=== PATIENT | male | born 1950 | race Caucasian/White ===

== ENCOUNTER 2016-10-29 12:57 | Inpatient (IN) ==
[2016-10-29] MEDS ORDERED: ASPIRIN ONE (13:19)
[2016-10-29] MEDS ORDERED: ASPIRIN PO STA (13:21)
[2016-10-29 13:34] LABS: MANUAL DIFF NEEDED? NO
--- NOTE | 2016-10-29 13:46 | EKG Report ---
Test Performed on : 10/29/2016 1:15:33 PM Test Reason : Chest Pain Blood Pressure : / mmHG Vent. Rate : 049 BPM Atrial Rate : 049 BPM P-R Int : 216 ms QRS Dur : 128 ms QT Int : 414 ms P-R-T Axes : 032 -28 084 degrees QTc Int : 373 ms Sinus bradycardia. with 1st degree AV block. Nonspecific intraventricular block Abnormal ECG When compared with ECG of 29-OCT-2016 13:14, (Unconfirmed) Sinus rhythm. has replaced Wide QRS rhythm. Unconfirmed Result
[2016-10-29 13:48] LABS: BASO% 0.1 % (0.0-0.8); EOS# 0.27 X1000 (0.0-0.7); EOS% 2.7 % (0.0-10.0); HEMATOCRIT 37.5 % (42.0-52.0); HEMOGLOBIN 12.7 g/dL (14.0-18.0); LYMPH# 2.03 X1000 (1.2-3.4); LYMPH% 20.6 % (20.5-51.1); MCHC 33.9 g/dL (33-37); MCV 91.5 FL (81-99); MONO# 0.54 X1000 (0.11-0.59); MONO% 5.5 % (1.7-9.3); MPV 9.8 FL (7.4-10.4); NEUT% 71.1 % (42.2-75.2); PLT 155 X1000 (130-400)
[2016-10-29 13:55] LABS: INR 1.01; PROTIME 10.6 Seconds (9.2-11.7); PTT 30.5 Seconds (22.0-36.0)
--- NOTE | 2016-10-29 13:58 | Diag Imaging Result Doc PS360 ---
CHEST-2 VIEWS - 10/29/2016 INDICATION: CP TECHNIQUE: COMPARISON: None FINDINGS: There are sternotomy wires. The lungs are normally expanded and clear. Heart size and mediastinal contours are normal. No pneumothorax or pleural effusion. IMPRESSION: Negative exam. Electronically signed by Jose Faith 10/29/2016 1:56 PM
[2016-10-29 14:12] LABS: ALBUMIN 4.4 g/dL (3.5-5.0); CALCIUM 9.1 mg/dL (8.8-10.2); MAGNESIUM 1.7 mg/dL (1.5-2.7); TOTAL BILIRUBIN 0.26 mg/dL (0.20-1.00); TOTAL PROTEIN 6.9 g/dL (6.3-8.3)
[2016-10-29 14:36] LABS: POTASSIUM 7.8 mmol/L (3.5-5.1)
[2016-10-29 14:55] LABS: CK INDEX 3.5 (0.0-2.5); CK-MB 10.08 ng/mL (0.0-5.0)
[2016-10-29] MEDS ORDERED: D50W 500 ML IV SCH (15:45)
[2016-10-29] MEDS ORDERED: HUMULIN R IV ONE ×2 (15:48→18:39)
[2016-10-29] MEDS ORDERED: KAYEXALATE PO ONE (15:49)
[2016-10-29] MEDS ORDERED: CALCIUM GLUCONATE 1 GM in NS 50 ML IV ONE (15:57)
[2016-10-29] MEDS ORDERED: D50W SYRINGE IV ONE ×2 (16:03→18:39)
--- NOTE | 2016-10-29 16:04 | PROVIDER DOCUMENTATION ---
This chart was entered by Kingsley Lo Scribe, acting as scribe for Darrell Arriola MD. HPI-General Adult - General Chief Complaint: Chest Pain Stated Complaint: CHEST PAIN Time Seen by Provider: 10/29/16 15:05 Source: patient Allergies/Adverse Reactions: Patient Allergies Allergy/AdvReac Type Severity Reaction Status Date / Time Penicillins Allergy Unknown Verified 10/29/16 15:22 Quinolones Allergy Unknown Verified 10/29/16 15:22 Home Medications: Home Medication List Medication Instructions Recorded Confirmed Last Taken Type BENAZEpril [Lotensin] 20 mg PO DAILY 10/29/16 10/29/16 10/29/16 07:00 History Carvedilol [Coreg] 12.5 mg PO BID 10/29/16 10/29/16 10/29/16 07:00 History Gabapentin 200 mg PO BID 10/29/16 10/29/16 10/29/16 07:00 History Naproxen 500 mg PO BID 10/29/16 10/29/16 10/29/16 07:00 History Omeprazole 40 mg PO DAILY 10/29/16 10/29/16 10/29/16 06:00 History SIMVAstatin [Zocor] 40 mg PO QHS 10/29/16 10/29/16 10/28/16 17:00 History Tamsulosin [Flomax] 0.4 mg PO DAILY 10/29/16 10/29/16 10/29/16 07:00 History - History of Present Illness -Gen Adult Nature of Presenting Problems: patient is a 66 y/o M that presents to the ER with 2 days of leg weakness and increased shortness of breath. Denies chest pain, n/v/d recently, or fever. Patient has history of CAD and COPD. Location of Pain/Injury: reports: lower body Quality of Pain: reports: aching Severity: reports: moderate Onset/Duration: reports: abrupt, 2 days ago Timing: reports: improving Context/Activities at Onset: reports: none Modifying Factors: improves with: nothing Associated Symptoms: reports: muscle aches, shortness of breath, weakness, trouble walking. denies: back/neck pain, chest pain, dizziness, fever/chills, genitourinary problems, nausea, vomiting Similar Symptoms Previously?: No Recently seen or treated by another doctor?: No Review of Systems - Adult - REVIEW OF SYSTEMS - ADULT Constitutional: denies: chills, fever Eyes: denies: decreased vision, blurred vision, double vision Ears, Nose, Mouth & Throat: denies: ear discharge, ear pain, sinus problem, throat pain, throat swelling Cardiovascular: denies: chest pain, palpitations, syncope Respiratory: reports: shortness of breath. denies: cough, wheezing Gastrointestinal: denies: abdominal pain, diarrhea, nausea, vomiting Genitourinary: reports: no symptoms reported Musculoskeletal: reports: frequent leg cramps, muscle aches, muscle weakness Integumentary: reports: no symptoms reported Neurological: reports: headache/migraines. denies: dizziness/vertigo Psychiatric: reports: no symptoms reported Endocrine: reports: no symptoms reported Hematologic/Lymphatic: reports: no symptoms reported Allergic/Immunologic: reports: no symptoms reported All Other Systems: Reviewed and Negative Past History - Adult - PAST MEDICAL HISTORY-ADULT Review of Records: reports: Old Records Reviewed, Nursing Assessment Review, Medications Reviewed Cardiovascular: reports: CAD, HTN, hyperlipidemia Respiratory: reports: COPD, sleep apnea Endocrine/Immune: reports: Diabetes - PRIOR SURGERIES/PROCEDURES Surgical/Procedure History: reports: CABG - IMMUNIZATION STATUS Childhood Immunizations: See Nurse Assessment Flu Vaccine: See Nurse Assessment - FAMILY HISTORY Family History: reviewed, not pertinent - SOCIAL HISTORY Smoking: quit greater than 1 year, cigarettes Substance Use: none/never Living Situation: family Physical Exam-General - PHYSICAL EXAM-ADULT Initial Vital Signs Reviewed: Yes - CONSTITUTIONAL General Appearance: alert, no apparent distress - EYES Eyes: PERRL/EOMI, pink conjunctivae - HEAD, EARS, NOSE, MOUTH & THROAT HENMT: normocephalic/atraumatic, moist mucous membranes, normal ENT inspection - NECK Neck: full range of motion, normal inspection - RESPIRATORY Respiratory: lungs clear, normal breath sounds, no respiratory distress, no accessory muscle use - CARDIOVASCULAR Cardiovascular: no edema, no JVD, bradycardia - GASTROINTESTINAL (ABDOMEN) Abdominal Exam: normal bowel sounds, non tender, soft, no organomegaly, no pulsatile mass - MUSCULOSKELETAL Back Exam: no CVA tenderness, no vertebral tenderness Extremity: normal range of motion, normal inspection, no pedal edema, no calf tenderness, normal capillary refill - SKIN Integumentary: normal color, warm/dry - 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, no motor/sensory deficits - PSYCHIATRIC Psych/Mental Status: normal mood/affect, normal thought content, normal thought process, oriented x 3 Progress - PLAN OF CARE/RESULTS Progress/Plan/Lab Results: Vital Signs - 8 hr 10/29/16 13:15 10/29/16 15:12 Temperature 97.6 F Pulse Rate 50 L 52 L Respiratory Rate 20 21 Blood Pressure 172/82 144/76 O2 Sat by Pulse Oximetry 99 98 Laboratory Results - last 24 hr 10/29/16 10/29/16 10/29/16 13:24 13:24 13:24 WBC 9.84 RBC 4.10 L Hgb 12.7 L Hct 37.5 L MCV 91.5 MCH 31.0 MCHC 33.9 RDW Std Deviation 12.7 Plt Count 155 MPV 9.8 Immature Gran % (Auto) 0.0 Neut % (Auto) 71.1 Lymph % (Auto) 20.6 [place] % (Auto) 5.5 Eos % (Auto) 2.7 Baso % (Auto) 0.1 Immature Gran # (Auto) 0.00 Neut # (Auto) 6.99 H Lymph # (Auto) 2.03 [place] # (Auto) 0.54 Eos # (Auto) 0.27 Baso # (Auto) 0.01 PT INR PTT (Actin FS) D-Dimer 0.49 Sodium 127 L Potassium 7.8 H* Chloride 97 L Carbon Dioxide 17 L Anion Gap 13 BUN 37 H Creatinine 2.2 H Estimated GFR/1.73 m2 30 BUN/Creatinine Ratio 17 Glucose 102 Calculated Osmolality 264 Calcium 9.1 Magnesium 1.7 Total Bilirubin 0.26 AST 21 ALT 19 Alkaline Phosphatase 105 Creatine Kinase 291 H Creatine Kinase Index 3.5 H CK-MB (CK-2) 10.08 H Troponin T Hfb-P-Kdxmawjroul Pept Total Protein 6.9 Albumin 4.4 Globulin 2.5 Albumin/Globulin Ratio 1.8 10/29/16 10/29/16 10/29/16 13:24 13:24 13:24 WBC RBC Hgb Hct MCV MCH MCHC RDW Std Deviation Plt Count MPV Immature Gran % (Auto) Neut % (Auto) Lymph % (Auto) [place] % (Auto) Eos % (Auto) Baso % (Auto) Immature Gran # (Auto) Neut # (Auto) Lymph # (Auto) [place] # (Auto) Eos # (Auto) Baso # (Auto) PT 10.6 INR 1.01 PTT (Actin FS) 30.5 D-Dimer Sodium Potassium Chloride Carbon Dioxide Anion Gap BUN Creatinine Estimated GFR/1.73 m2 BUN/Creatinine Ratio Glucose Calculated Osmolality Calcium Magnesium Total Bilirubin AST ALT Alkaline Phosphatase Creatine Kinase Creatine Kinase Index CK-MB (CK-2) Troponin T < 0.010 Xic-H-Polwpaajnmr Pept 120 Total Protein Albumin Globulin Albumin/Globulin Ratio 10/29/16 14:42 WBC RBC Hgb Hct MCV MCH MCHC RDW Std Deviation Plt Count MPV Immature Gran % (Auto) Neut % (Auto) Lymph % (Auto) [place] % (Auto) Eos % (Auto) Baso % (Auto) Immature Gran # (Auto) Neut # (Auto) Lymph # (Auto) [place] # (Auto) Eos # (Auto) Baso # (Auto) PT INR PTT (Actin FS) D-Dimer Sodium Potassium 7.8 H* Chloride Carbon Dioxide Anion Gap BUN Creatinine Estimated GFR/1.73 m2 BUN/Creatinine Ratio Glucose Calculated Osmolality Calcium Magnesium Total Bilirubin AST ALT Alkaline Phosphatase Creatine Kinase Creatine Kinase Index CK-MB (CK-2) Troponin T Tvv-U-Ewtskmgdhmz Pept Total Protein Albumin Globulin Albumin/Globulin Ratio Orders Category Date Time Status CHEST-2 VIEWS [RAD] Stat Exams 10/29/16 13:21 Completed CBC WITH ELECTRONIC DIFF [HEME] Stat Lab 10/29/16 13:24 Completed CK PROFILE [SP CHEM] Stat Lab 10/29/16 13:24 Completed COMPREHENSIVE METABOLIC PANEL [CHEM] Stat Lab 10/29/16 13:24 Completed D-DIMER [CHEM] Stat Lab 10/29/16 13:24 Completed MAGNESIUM [CHEM] Stat Lab 10/29/16 13:24 Completed POTASSIUM [CHEM] Stat Lab 10/29/16 14:42 Completed PRO B-NATRIURETIC PEPTIDE Stat Lab 10/29/16 13:24 Completed PROTIME WITH INR [COAG] Stat Lab 10/29/16 13:24 Completed PTT [COAG] Stat Lab 10/29/16 13:24 Completed TROPONIN T Stat Lab 10/29/16 13:24 Completed Aspirin Med 10/29/16 13:19 Discontinued 325 mg .ROUTE .STK-MED ONE Aspirin Med 10/29/16 13:21 Discontinued 325 mg PO STAT STA EKG [EKG] Stat Ther 10/29/16 13:21 Draft Vital Signs Temp Pulse Resp BP Pulse Ox 10/29/16 15:12 52 L 21 144/76 98 10/29/16 13:15 97.6 F 50 L 20 172/82 99 Penicillins Allergy (Verified 10/29/16 15:22) Unknown Quinolones Allergy (Verified 10/29/16 15:22) Unknown BENAZEpril [Lotensin] 20 mg PO DAILY 10/29/16 Carvedilol [Coreg] 12.5 mg PO BID 10/29/16 Gabapentin 200 mg PO BID 10/29/16 Naproxen 500 mg PO BID 10/29/16 Omeprazole 40 mg PO DAILY 10/29/16 SIMVAstatin [Zocor] 40 mg PO QHS 10/29/16 Tamsulosin [Flomax] 0.4 mg PO DAILY 10/29/16 Laboratory 10/29/16 10/29/16 10/29/16 14:42 13:24 13:24 WBC RBC Hgb Hct MCV MCH MCHC RDW Std Deviation Plt Count MPV Immature Gran % (Auto) Neut % (Auto) Lymph % (Auto) [place] % (Auto) Eos % (Auto) Baso % (Auto) Immature Gran # (Auto) Neut # (Auto) Lymph # (Auto) [place] # (Auto) Eos # (Auto) Baso # (Auto) PT 10.6 INR 1.01 PTT (Actin FS) 30.5 D-Dimer Sodium Potassium 7.8 H* Chloride Carbon Dioxide Anion Gap BUN Creatinine Estimated GFR/1.73 m2 BUN/Creatinine Ratio Glucose Calculated Osmolality Calcium Magnesium Total Bilirubin AST ALT Alkaline Phosphatase Creatine Kinase Creatine Kinase Index CK-MB (CK-2) Troponin T < 0.010 Yiv-X-Pdpqgldbaki Pept Total Protein Albumin Globulin Albumin/Globulin Ratio 10/29/16 10/29/16 10/29/16 13:24 13:24 13:24 WBC RBC Hgb Hct MCV MCH MCHC RDW Std Deviation Plt Count MPV Immature Gran % (Auto) Neut % (Auto) Lymph % (Auto) [place] % (Auto) Eos % (Auto) Baso % (Auto) Immature Gran # (Auto) Neut # (Auto) Lymph # (Auto) [place] # (Auto) Eos # (Auto) Baso # (Auto) PT INR PTT (Actin FS) D-Dimer 0.49 Sodium 127 L Potassium 7.8 H* Chloride 97 L Carbon Dioxide 17 L Anion Gap 13 BUN 37 H Creatinine 2.2 H Estimated GFR/1.73 m2 30 BUN/Creatinine Ratio 17 Glucose 102 Calculated Osmolality 264 Calcium 9.1 Magnesium 1.7 Total Bilirubin 0.26 AST 21 ALT 19 Alkaline Phosphatase 105 Creatine Kinase 291 H Creatine Kinase Index 3.5 H CK-MB (CK-2) 10.08 H Troponin T Slm-P-Zbnelbzwapt Pept 120 Total Protein 6.9 Albumin 4.4 Globulin 2.5 Albumin/Globulin Ratio 1.8 10/29/16 13:24 WBC 9.84 RBC 4.10 L Hgb 12.7 L Hct 37.5 L MCV 91.5 MCH 31.0 MCHC 33.9 RDW Std Deviation 12.7 Plt Count 155 MPV 9.8 Immature Gran % (Auto) 0.0 Neut % (Auto) 71.1 Lymph % (Auto) 20.6 [place] % (Auto) 5.5 Eos % (Auto) 2.7 Baso % (Auto) 0.1 Immature Gran # (Auto) 0.00 Neut # (Auto) 6.99 H Lymph # (Auto) 2.03 [place] # (Auto) 0.54 Eos # (Auto) 0.27 Baso # (Auto) 0.01 PT INR PTT (Actin FS) D-Dimer Sodium Potassium Chloride Carbon Dioxide Anion Gap BUN Creatinine Estimated GFR/1.73 m2 BUN/Creatinine Ratio Glucose Calculated Osmolality Calcium Magnesium Total Bilirubin AST ALT Alkaline Phosphatase Creatine Kinase Creatine Kinase Index CK-MB (CK-2) Troponin T Eyf-Y-Mvwrqldpmuf Pept Total Protein Albumin Globulin Albumin/Globulin Ratio Orders Category Date Time Status CHEST-2 VIEWS [RAD] Stat Exams 10/29/16 13:21 Completed CBC WITH ELECTRONIC DIFF [HEME] Stat Lab 10/29/16 13:24 Completed CK PROFILE [SP CHEM] Stat Lab 10/29/16 13:24 Completed COMPREHENSIVE METABOLIC PANEL [CHEM] Stat Lab 10/29/16 13:24 Completed D-DIMER [CHEM] Stat Lab 10/29/16 13:24 Completed MAGNESIUM [CHEM] Stat Lab 10/29/16 13:24 Completed POTASSIUM [CHEM] Stat Lab 10/29/16 14:42 Completed PRO B-NATRIURETIC PEPTIDE Stat Lab 10/29/16 13:24 Completed PROTIME WITH INR [COAG] Stat Lab 10/29/16 13:24 Completed PTT [COAG] Stat Lab 10/29/16 13:24 Completed TROPONIN T Stat Lab 10/29/16 13:24 Completed Aspirin Med 10/29/16 13:19 Discontinued 325 mg .ROUTE .STK-MED ONE Aspirin Med 10/29/16 13:21 Discontinued 325 mg PO STAT STA Dextrose 50% Water Inj. [D50w] 500 ml Med 10/29/16 15:45 Ordered IV As Directed Insulin Human Regular [Humulin R] Med 10/29/16 15:48 Discontinued 10 unit IV NOW ONE Sodium Polystyrene [Kayexalate] Med 10/29/16 15:49 Discontinued 15 gm PO NOW ONE EKG [EKG] Stat Ther 10/29/16 13:21 Draft Result Diagrams: 10/29/16 13:24 10/29/16 14:42 - EKG 1 Time of EKG reading by physician:: 13:32 EKG Read and Signed by:: Darrell Arriola EKG Interpretation (*Must complete 3 of following elements*): Abnormal Rate: 49 Rhythm: Sinus bradycardia with 1st degree Av block [place]: normal QRS: NSIVCD [place] Interval: normal ST Wave: non-specific ST changes (mild peaking of T-waves) - CONSULTS/PCP/HOSPITALIST Notification #1 *Consult/PCP/Hospitalist*: Maribell BERRIOS with Hospitalist Time Discussed: 15:55 Reason/Comments: YOUNG, Hyperkalemia Consult Disposition: Admit (give amp of calcium) Departure - Departure Date of Disposition Decision: 10/29/16 Time of Disposition Decision: 15:55 DIAGNOSIS: YOUNG (acute kidney injury), Acute hyperkalemia Disposition: ADMITTED INPATIENT 09 Certified Medical Emergency: Emergent Condition: Stable Referrals and Follow-Ups: Justyn Carpio [Primary Care Provider] - - Critical Care Note This patient required my direct & personal management of CC.: Yes Total Time (mins): 45 Critical Care Statement: This patient required my direct personal management to treat or rule out processes, the absence of which, could potentiallly result in sudden, clinically significant life or limb threatening deterioration. Attestation - Physician/ IJEOMA Attestation The physician spent face to face time with patient:: Yes Advanced Practice Provider documentation review:: Supervising physician onsite and consulted in the evaluation and care of this patient. The physician did have a face to face encounter with the patient. This chart was documented by the indicated scribe, (Kingsley Lo, Scribe) and accurately reflects the services I performed and decisions made by me, Darrell Arriola MD, as attested by the provider's signature.
[2016-10-29] MEDS ORDERED: SODIUM BICARBONATE 8.4% IV PUSH ONE (16:32)
--- NOTE | 2016-10-29 17:09 | HISTORY AND PHYSICAL ---
His chief complaint when he came in was cramping in his muscles and weakness. This is a 66-year- old who stated he was working outside, came in the house. He was sitting in a lounge chair and about 9 o'clock this morning noticed cramping in his lower legs, his calves and then cramping in his hands and feeling funny with kind of a wave of tingling and discomfort coming from his neck all the way down his body. But the main concern was the cramping and the weakness. He denied any squeezing or pressure chest pain. No fever but he did break out in a sweat. He denied pleuritic pain. No wheezing. No sputum production. No gross hematuria or dysuria. PAST MEDICAL HISTORY: 1. He has history of coronary artery disease. Apparently in 2010 he had symptoms of feeling weak and tired and apparently some chest discomfort. Went to the emergency room and they checked enzymes and they were positive. Workup revealed I think 3 vessel disease and he went for CABG bypass surgery in 2010. That is when he quit smoking. 2. Long history of tobacco. Quit in 2010. 3. Borderline diabetes, that is what they told him, but does not have diabetes. 4. Hypercholesterolemia. 5. Hypertension. PAST SURGICAL HISTORY: Status post CABG bypass surgery. ALLERGIES: Penicillin and quinolones. FAMILY HISTORY: Mother with diabetes. Father I think with coronary artery disease. REVIEW OF SYSTEMS: General: He denies fever. He did break out in sweats this morning. HEENT: Did not have change in his hearing or vision. No complaints of throat or posterior pharynx discomfort or trouble with upper respiratory drainage. Cardiovascular: No chest pain. No palpitations. No orthopnea or paroxysmal nocturnal dyspnea. GI/: No complaints of constipation or change in his bowels. No gross hematochezia. GI/: No gross hematuria, dysuria. No increase or change in his frequency of urination. He does have a benign prostatic hypertrophy with minimal symptoms of obstruction. Endocrinologic/hematologic: No new complaints. Does not give any history of thyroid issues or anemia. Skin: No complaints of rashes but he did have a sebaceous cyst on the left lower back that apparently was opened and incised by his primary care and he was put on Bactrim about a week ago, Bactrim Double Strength 1 twice a day. PHYSICAL EXAM: In the emergency room. VITAL SIGNS: Temperature 97.6 degrees, pulse 54, respirations 20, blood pressure 134/75. HEENT: Pupils are equal and round. CVP less than 6 cm. LUNGS: Clear in all lung morrison. CARDIOVASCULAR: Regular rhythm and rate without murmur or S3. ABDOMEN: Soft, nontender, nondistended. Positive bowel sounds. No hepatosplenomegaly. He has a sternotomy scar appreciated, well-healed. LEFT LOWER BACK: There is about a 5.5 cm opening with some milky discharge and purulent, consistent with sebaceous cyst. EXTREMITIES: Without clubbing, cyanosis, or edema. SKIN: Warm and dry. No sign of rashes. Carotid, radial and pedal pulses 2+ and symmetrical. No adenopathy cervical, supraclavicular, or femoral adenopathy. NECK: Was supple. No thyromegaly and no carotid bruits appreciated. LABORATORY DATA: White count 9840, hematocrit 37, platelet count 155,000. Sodium 127, potassium 7.8, chloride 97, bicarb 17, BUN 37, creatinine 2.2. Blood sugar 102. Calcium 9.1, magnesium 1.7. Liver functions unremarkable. Alkaline phos 105. CPK was 291 with index of 3.5, and MB was 10.8, his troponin was less than 0.01. ProBNP 120. Albumin 4.4. Pro-time 10.6, PTT 30.5. Chest x-ray, there are sternotomy wires. Lungs are normally expanded and clear. No pneumothorax or pleural effusion. No infiltrates, a negative exam. ASSESSMENT AND PLAN: 1. Hyperkalemia in the face of what appears to be acute kidney injury. Looking back, I do not see a previous creatinine recorded but he does have no history of kidney issues according to the patient so I wonder if he does not have acute tubular necrosis possibly secondary to the Bactrim. We are going to see if we can get some urine eosinophils and maybe get urine for osmolality, creatinine and sodium. We will give him IV fluids. I will use normal saline and run it at 100 mL an hour for 8 hours and then cut it down to 85 mL an hour. We will follow his potassium and his magnesium and serum creatinine. 2. Hyperkalemia. He had peaked T-waves but otherwise EKG unremarkable. No sign of arrhythmia. We did give him an amp of calcium in the emergency room. We will treat him with an amp of bicarb, an amp of D50 followed by insulin and I think we will give him some DuoNeb breathing treatments 4 times a day and also gave him some Kayexalate. 3. History of coronary artery disease status post CABG. I do not see any evidence of cardiac ischemia. He does not have any history of left ventricular dysfunction that we know of. I have no previous echocardiogram and nuclear ventriculogram to compare. 4. Hypertension. Aware. 5. Hypercholesterolemia. Aware. We will continue his current medication. 6. Borderline diabetes. Blood sugar was 102. We will check a hemoglobin A1c and check a lipid profile in the morning and another set of CPK and troponin as well as T4, TSH, cortisol, B12 and folate. cc: Joe Dudley MD
[2016-10-29 18:09] LABS: CALCIUM 9.1 mg/dL (8.8-10.2); MAGNESIUM 1.9 mg/dL (1.5-2.7); POTASSIUM 6.2 mmol/L (3.5-5.1)
[2016-10-29] MEDS: DUONEB (A & A) INH SCH (20:54)
[2016-10-29 22:45] LABS: UR CREAT RANDOM 54.1 mg/dL (14-26)
[2016-10-29 23:31] LABS: MAGNESIUM 1.8 mg/dL (1.5-2.7); POTASSIUM 5.5 mmol/L (3.5-5.1)
[2016-10-30] MEDS: DUONEB (A & A) INH SCH ×3 (03:00→15:43)
[2016-10-30] MEDS ORDERED: ZOFRAN IV PRN (05:06)
[2016-10-30] MEDS ORDERED: NORCO-7.5 PO PRN (05:06)
[2016-10-30] MEDS ORDERED: TYLENOL PO PRN (05:06)
[2016-10-30] MEDS ORDERED: NS 1,000 ML IV SCH ×3 (05:06→13:38)
[2016-10-30 06:50] LABS: MANUAL DIFF NEEDED? NO
[2016-10-30 06:58] LABS: BASO% 0.2 % (0.0-0.8); EOS# 0.23 X1000 (0.0-0.7); EOS% 3.5 % (0.0-10.0); HEMATOCRIT 37.5 % (42.0-52.0); HEMOGLOBIN 12.8 g/dL (14.0-18.0); IMM GRAN# 0.02 X1000 (0.0-0.04); IMM GRAN% 0.3 % (0.0-0.5); LYMPH# 1.94 X1000 (1.2-3.4); LYMPH% 29.1 % (20.5-51.1); MCH 31.4 PG (27-31); MCHC 34.1 g/dL (33-37); MCV 91.9 FL (81-99); MONO# 0.47 X1000 (0.11-0.59); MONO% 7.1 % (1.7-9.3); MPV 9.7 FL (7.4-10.4); NEUT% 59.8 % (42.2-75.2); PLT 128 X1000 (130-400); RBC 4.08 XMIL (4.7-6.1)
--- NOTE | 2016-10-30 07:08 | EKG Report ---
Test Performed on : 10/30/2016 05:54:08 AM Test Reason : hyperkalemia Blood Pressure : / mmHG Vent. Rate : 053 BPM Atrial Rate : 053 BPM P-R Int : 174 ms QRS Dur : 090 ms QT Int : 412 ms P-R-T Axes : 012 -26 054 degrees QTc Int : 386 ms Sinus bradycardia. Otherwise normal ECG When compared with ECG of 29-OCT-2016 13:15, (Unconfirmed) ST now depressed in lead [address] and T wave abnormality aVL Confirmed by Sree Lee DO ([id number]) on 10/30/2016 9:18:15 AM
[2016-10-30 07:09] LABS: INR 1.02; PROTIME 10.7 Seconds (9.2-11.7); PTT 29.7 Seconds (22.0-36.0)
[2016-10-30 07:11] LABS: ALBUMIN 4.4 g/dL (3.5-5.0); CALCIUM 9.2 mg/dL (8.8-10.2); MAGNESIUM 1.8 mg/dL (1.5-2.7); POTASSIUM 5.9 mmol/L (3.5-5.1); TOTAL BILIRUBIN 0.37 mg/dL (0.20-1.00)
[2016-10-30 07:41] LABS: FREE T4 1.14 ng/dL (0.93-1.70)
--- NOTE | 2016-10-30 07:45 | Diag Imaging Result Doc PS360 ---
US RENAL 2 (RETROPER) COMPLETE - 10/30/2016 INDICATION: joaquina TECHNIQUE: COMPARISON: CT from 08/22/2010 FINDINGS: There are rather small bilateral renal cysts. On the right side this measures 2 cm. On the left side there are a couple of cysts measuring up to 1 cm. No hydronephrosis or hydroureter. Background renal echotexture is normal. Renal sizes are normal. The right kidney measures 11.8 x 5.1 x 4.9 cm. Cortex measures 7 mm. The left kidney measures 10.8 x 4.8 x 4.9 cm. Cortex measures 8 mm. The urinary bladder appears normal. The prostate gland appears normal. IMPRESSION: Small benign bilateral renal cysts. No acute disease. Electronically signed by Jose Faiht 10/30/2016 7:42 AM
[2016-10-30] MEDS ORDERED: NEURONTIN PO SCH (09:00)
[2016-10-30] MEDS ORDERED: PRILOSEC PO SCH (09:00)
[2016-10-30] MEDS ORDERED: HEPARIN SUBQ SCH (09:00)
[2016-10-30] MEDS ORDERED: FLOMAX PO SCH (09:00)
[2016-10-30] MEDS ORDERED: COREG PO SCH (09:00)
[2016-10-30] MEDS ORDERED: KAYEXALATE PO ONE (09:00)
[2016-10-30] MEDS ORDERED: NS 1,000 ML ONE (09:54)
--- NOTE | 2016-10-30 13:50 | PROGRESS NOTE ---
DATE: 10/30/2016 He is feeling much better. No further muscle cramping. Breathing comfortably. Noted his potassium was 5.9, creatinine 2.1. EXAM: Today still in the emergency room waiting on a bed. Temp 98.2 degrees, pulse 56, respirations 18, blood pressure 132/67.HEENT: Pupils are equal, round. CVP less than 6 cm. Lungs: Clear in all lung morrison. Cardiovascular: Regular rhythm and rate without murmur or S3. Abdomen: Soft. Skin: Warm and dry. LAB: White count 6660, hematocrit 37, platelet count 128,000. Troponin less than 0.01. Cholesterol okay. ASSESSMENT AND PLAN: Hyperkalemia, acute kidney injury. Serum creatinine improved. Renal function, good urine output. His lab, creatinine has come down to 2.1. His potassium has come down from 7.8. His troponin are negative. He is feeling better. EKG from today, he still has some peaked T-waves. No ST-segment deviation. I am going to continue his fluids. Continue to watch urine output and may get to go home later on today. Note the renal ultrasound was done this morning and small benign bilateral renal cysts, otherwise unremarkable. No hydronephrosis. cc: Joe Dudley MD
--- NOTE | 2016-10-30 15:05 | CONSULTATION ---
DATE OF CONSULTATION: 10/30/2016 REASON FOR CONSULTATION: Renal failure and hyperkalemia. HISTORY OF PRESENT ILLNESS: Mr. Lee is a 66-year-old, white male, who has never seen a trade facilitator before. He has hypertension, coronary disease, hyperlipidemia. He also has osteoarthritis. He has been taking routinely, lisinopril as well as nonsteroidal anti- inflammatory drug. In this context, he has developed a furuncle on the back and was treated with Bactrim DS b.i.d. following an I and D performed in the office by Dr. Carpio in [place]. This was started less than 1 week ago. He states that he was overall feeling normal and worked in his garden yesterday morning. He came inside to take a break and had cramping in the calves and then had a generalized sense of malaise. He also noted marked weakness in the arms such that he had difficulty lifting a drink to his mouth. Tremors were associated. Because of these symptoms, he sought attention in the emergency room. His initial evaluation found his blood pressure 172/82 with a heart rate of 50. EKG performed at the time (1321 on yesterday) showed wide complex rhythm with a first-degree AV block. Initial laboratory data collected at 1324, found potassium of 7.8, bicarbonate 17, creatinine of 2.2. He was treated medically for his hyperkalemia and had progressive improvement, such that his potassium this morning is 5.9. His symptoms have resolved entirely. He has never had similar symptoms. PAST MEDICAL HISTORY: As above. HOME MEDICATIONS: Naproxen 500 b.i.d., benazepril 20 mg a day, omeprazole, carvedilol, gabapentin, simvastatin, tamsulosin. ALLERGIES: Penicillin and quinolones. SOCIAL HISTORY: Former smoker. None currently. FAMILY HISTORY: Negative for kidney disease. REVIEW OF SYSTEMS: Otherwise noncontributory. He does describe some difficulty with voiding and sensation of incomplete voiding. PHYSICAL EXAM: Vital Signs: Blood pressure 108/67, heart rate 61, respirations 20, afebrile. Generally: He is in no acute distress. Skin: Warm and dry. The lesion on his back has minimal erythema. No drainage. Conjunctivae are pink and moist. Pupils are equal and round. Oropharynx is clear. Neck: Supple. Trachea is midline. Neck veins are not distended. Heart: Regular. No gallops, murmurs or rubs. Lungs: Have equal breath sounds. No crackles, wheezes, accessory muscle use or retractions. Abdomen: Soft, nontender. Bowel sounds present. No organomegaly, masses or bruits. Extremities: Have no edema, clubbing, or cyanosis. IMPRESSION: Hyperkalemia. This is multifactorial related to his combination of medications including BRIE inhibitor, nonsteroidal anti-inflammatory drug, beta-ole, Bactrim. Also likely intravascular volume depletion is present. He has been treated with IV fluids and his treatment for hyperkalemia has been appropriate. We will give 2 doses of Kayexalate today. Continue IV fluids. The above offending medications have been discontinued with the exception of his carvedilol, which is appropriate. His renal ultrasound was unremarkable. We do not have a baseline renal function measurement. Continue evaluation. cc: Graeme Holm MD
[2016-10-30 16:28] VITALS: BP 141/90
--- NOTE | 2016-10-30 17:00 | DISCHARGE SUMMARY ---
ADMISSION DATE: 10/29/2016 DISCHARGE DATE: 10/30/2016 HISTORY OF PRESENT ILLNESS: He is seen by Dr. Justyn Carpio. He came with the complaint of cramping muscles in legs and arms. A 66-year-old was working outside, came in the house, chair and had severe cramping and felt funny, weak. Came to the emergency room. His potassium was above 7. Concern feeling weak and he had felt similar to this years ago in 2010 when he required CABG bypass but he denied chest pain. PAST MEDICAL HISTORY: 1. Coronary artery disease. Apparently in 2010 he had bypass surgery. He has quit smoking since then. No history of congestive heart failure. No history of definitive heart attack or left ventricular damage. 2. Long history of tobacco, quit in 2010. 3. Borderline diabetes mellitus type 2. 4. Hypercholesterolemia. 5. Hypertension. PAST SURGICAL HISTORY: Status post CABG bypass surgery. HOSPITAL COURSE: Admitted. We gave him some bicarb, Kayexalate, D50, and insulin. His potassium came down nicely and he was feeling much better. No further cramping. Original potassium 7.8 with sodium 127. Follow up in about 5 hours sodium was 133, potassium 6.2. It was 134 with 5.5, 135 with 5.9 this morning. The patient has done well. He was eating well. Note that creatinine is 2.1 and on presentation was 2.2. So it is hovering about the same. My concern was I thought that maybe he was taking some Bactrim and may have had acute kidney injury. His renal ultrasound was completely unremarkable. I did make some adjustments on his medications but at home his medications, he was taking Lotensin 20 mg a day and I think I will stop that. Coreg 12.5 mg b.i.d. He was on gabapentin. He was on naproxen. I am going to have him hold the naproxen, hold the Lotensin, continue the Flomax and the Zocor and follow up and get a basic metabolic profile, follow up electrolytes with his primary care. Renal ultrasound was unremarkable. Dr. Holm did evaluate and felt that hyperkalemia multifactorial related to combination of medications including BRIE inhibitor and nonsteroidal anti-inflammatory and beta-ole and Bactrim and intravascular volume depletion. IV fluids were given and gave 2 doses of Kayexalate today. Offending medication discontinued with exception of carvedilol which is appropriate. Ultrasound was unremarkable. I do not have baseline renal function so we will let him go home this evening. DISCHARGE MEDICATIONS: Coreg 6.125 mg b.i.d., Neurontin 200 mg b.i.d. PLAN: Prilosec 40 mg a day we can stop. He is not complaining of abdominal pain. I will have him drink plenty of fluids. Follow up with primary care in a couple weeks. Stop the Bactrim. Note he did have a sebaceous cyst which was drained and does appear to be improving. I do not think he needs any further antibiotic with that. cc: Joe Dudley MD
--- NOTE | 2016-10-30 18:01 | ECHO REPORT ---
ORDER DATE: 10/30/2016 INTERPRETING PHYSICIAN: Dr. Iqbal REQUESTING PHYSICIAN: CLINICAL INDICATIONS: Coronary heart disease, bypass, hypertension. M-MODE MEASUREMENTS: Right ventricle: 2.2 cm. Left ventricle end diastole: 5.7 cm. Left ventricle end systole: 3.2 cm. Posterior wall: 1.2 cm. Interventricular septum: 1.2 cm. Left atrium: 4.5 cm. Aortic root: 3.0 cm. SUMMARY OF 2-DIMENSIONAL IMAGING: The left ventricular function is normal. Ejection fraction 60%. No definite wall motion abnormality is noted. The left ventricle is probably mildly enlarged. The right ventricle appears to be normal. The aortic valve shows normal opening of the cusps. Color flow mapping unremarkable. The mitral valve shows a mild degree of regurgitation. Pulse wave Doppler of mitral inflow is normal. Tissue Doppler of septal and lateral mitral annulus averages 10 cm per second. Pulmonary venous flow is normal. There is no diastolic dysfunction. The tricuspid valve looks normal. Color flow mapping indicates a mild degree of regurgitation. Pulmonary pressure estimated at 26 mmHg. The pulmonic valve looks normal. Color flow mapping unremarkable. There is no pericardial effusion, masses or thrombus. IMPRESSION: In summary, this study shows: 1. Normal left ventricular systolic function. 2. No diastolic dysfunction. 3. Mild degree of mitral, pulmonic, and tricuspid regurgitation. 4. Pulmonary pressure estimated at 26 mmHg. Clinical correlation recommended. cc: MD Maribell Boswell CRNP
[2016-10-30] MEDS ORDERED: ZOCOR PO SCH (21:00)
== END 2016-10-30 17:07 | disposition home or self-care (01) ==
LOC: ED 12:57 → EDIPHOLD 20:20 → 4N 10-30 12:30
PROVIDERS: ATTEND Emergency Medicine